=== PATIENT | female | born 1955 | race African-American/Black ===

== ENCOUNTER 2019-07-14 11:02 | Emergency (ER) | payer MEDICARE ==
[~2019-07-14] VITALS: Ht 160 cm; Wt 68.0 kg
[~2019-07-14 11:02] MED LIST: AMLODIPINE BESY10 MG ORAL; LISINOPRIL20 MG ORAL; OLANZAPINE20 MG ORAL; ZOCOR40 MG ORAL
[2019-07-14] MEDS ORDERED: SIMVASTATIN20 MG ORAL ×2 (11:18→11:50)
[2019-07-14 11:30] VITALS: BP 156/91
[2019-07-14] MEDS ORDERED: AMLODIPINE BESY10 MG ORAL (11:50)
[2019-07-14] MEDS ORDERED: OLANZAPINE20 MG ORAL (11:50)
[2019-07-14] MEDS ORDERED: LISINOPRIL20 MG ORAL (11:50)
--- NOTE | 2019-07-14 11:55 | Emergency Room Report ---
History of Present Illness General Chief Complaint: Medication Refill Source: Patient Present Illness HPI Patient is a 64-year-old female presents after running out of her medications for the past 3 days. She reports running out of multiple medications. Denies any current complaints. [place] and intermittently visits [place]. Denies any current auditory or visual hallucinations. Allergies: Coded Allergies: PENICILLINS (Verified Allergy, Unknown, 07/14/19) Patient History Past Medical History: see triage record Last Menstrual Period: na Reviewed Nursing Documentation: PMH: Agreed; PSxH: Agreed Nursing Documentation-PMH Past Medical History: No History, Except For Hx Hypertension: Yes Hx Pacemaker: No - hyperlipidemia History Of Psychiatric Problem: Yes - depression Review of Systems All Other Systems: negative except mentioned in HPI Physical Exam Vital Signs Date Time Temp Pulse Resp B/P (MAP) Pulse Ox O2 Delivery O2 Flow Rate FiO2 07/14/19 11:12 97.9 93 18 157/94 (115) 92 Room Air General Appearance: well appearing, no apparent distress, alert, GCS 15 Head: normocephalic, atraumatic ENT: hearing grossly normal, normal voice Neck: full range of motion, supple Respiratory: no respiratory distress, speaking full sentences Cardiovascular #1: normal inspection Gastrointestinal: normal inspection Musculoskeletal: normal inspection, no calf tenderness Neurologic: alert, motor strength/tone normal, web site admin III-XII nml as tested, EOM palsy, normal gait Psychiatric: normal inspection, mood/affect normal Skin: no rash Medical Decision Making Diagnostic Impression: Primary Impression: Medication refill ER Course Patient presented for medication refill. Patient does not appear to be acutely hypertensive or psychotic. Patient will be given prescriptions of her medications. She advised to follow-up with a primary care physician for further medication refills. She is to return for any concerns. This medical record is generated with [employer] administrative and program specialist software. There may be some administrative and program specialist discrepancies related to use of this software Last Vital Signs Date Time Temp Pulse Resp B/P (MAP) Pulse Ox O2 Delivery O2 Flow Rate FiO2 07/14/19 11:30 97.7 68 20 156/91 94 Room Air Status: improved Disposition: HOME, SELF-CARE Condition: Stable Scripts Simvastatin (ZOCOR) 20 Mg Tablet 20 MG ORAL BEDTIME, #30 TAB Prov: Nelson Choudhury MD 07/14/19 Lisinopril (LISINOPRIL*) 20 Mg Tablet 20 MG ORAL DAILY, #30 TAB Prov: Nelson Choudhury MD 07/14/19 Amlodipine Besylate* (AMLODIPINE BESYLATE*) 10 Mg Tablet 10 MG ORAL DAILY, #30 TAB Prov: Nelson Choudhury MD 07/14/19 Olanzapine (OLANZAPINE) 20 Mg Tablet 20 MG ORAL HS, #30 TAB 0 Refills Prov: Nelson Choudhury MD 07/14/19 Patient Instructions: Medicine Refill at the Emergency Department Nelson Choudhury MD Jul 14, 2019 11:55
== END 2019-07-14 11:58 | disposition home or self-care (01) ==
LOC: EMR 11:45
DX: Z76.0 Encounter for issue of repeat prescription (principal); I10 Essential (primary) hypertension; E78.5 Hyperlipidemia, unspecified; F32.9 Major depressive disorder, single episode, unspecified; Z88.0 Allergy status to penicillin
CPT/HCPCS: 99282